=== PATIENT | female | born 1965 ===

== ENCOUNTER → 2022-10-22 10:06 | Outpatient (CLI) | payer OTHER, SELFPAY ==
--- NOTE | ~2022-10-22 | MR_ITS ---
EXAMINATION: MR elbow RT wo con DATE: 10/22/2022 10:51 INDICATION: A couple months of right elbow pain TECHNIQUE: Magnetic resonance imaging (MRI) of the right elbow was performed without intravenous cont rast. Sequences included coronal, axial, and sagittal PD-weighted FS FSE and coronal, axial, and sagi ttal PD-weighted FSE. COMPARISON: None FINDINGS: Osseous/other: Normal alignment. Normal marrow signal with no marrow edema, fracture, osteochondral lesion or abnor mal marrow replacing process. Tendons: Triceps, biceps brachii and brachialis tendons are normal. Common flexor tendon wad is normal. Mild tendinopathy without discrete tear at the lateral epicondylar origin of the common extensor tendon wa d. Ligaments: The medial and lateral collateral ligament complexes are normal. Cubital tunnel: Cubital tunnel is unremarkable with normal signal and caliber of the ulnar nerve. Fluid: Physiologic amount of fluid the elbow joint. IMPRESSION: 1. Mild tendinopathy without discrete tear at the lateral epicondylar origin of the common extensor t endon wad. Reviewed, dictated and finalized at location A. DRESSER IMPRESSION: 1. Mild tendinopathy without discrete tear at the lateral epicondylar origin of the common extensor tendon wad.
== END ==
PROVIDERS: PCP Family Medicine; Visit Provider Nurse Practitioner
DX: M79.601 Pain in right arm (principal)
CPT/HCPCS: 73221

== ENCOUNTER 2025-03-19 15:45 | Outpatient (RCR) | payer OTHER, SELFPAY ==
--- NOTE | 2025-03-19 16:45 | OPREHPOC ---
Outpatient Therapy Plan of Care This is a Multidisciplinary Plan of Care that may contain components documented by all disciplines (PT, OT, and ST.) PT Problem 1 PT Problem #1 Knowledge Deficit PT Goal 1 Goal / Goal Update Independent and compliant with HEP. Target Visit 2 PT Problem 2 PT Problem #2 Pain PT Goal 1 Goal / Goal Update Pt to report no worse than 2/10 pain at rest. Pt to report no worse than 6/10 pain with activity . Target Visit 10 PT Problem 3 PT Problem #3 Impaired Strength PT Goal 1 Goal / Goal Update Pt to improve R hip and knee strength to 4+/5 for improved dynamic stability for functional tasks. Target Visit 10 PT Problem 4 PT Problem #4 Impaired Range of Motion PT Goal 1 Goal / Goal Update Pt to improve R knee flexion AROM to 120 deg. Target Visit 10 PT Problem 5 PT Problem #5 Impaired Functional Mobility PT Goal 1 Goal / Goal Update Pt to report 20% reduction in perceived disability on LEFS. Pt to report being able to get in/out of the car with no worse than 4/10 pain. Target Visit 10
--- NOTE | 2025-03-19 16:46 | PTOPEVAL1 ---
Assessment and note entered by Camryn Warren, PT Evaluation Information Assessment Status Evaluation ICD-10 Condition Codes (PT) Pain in right knee M25.561 Other ICD-10 Condition Codes ( R60.0 PT) Onset 03/05/25 Subjective Information Pt reports onset of knee pain two weeks ago and notes no mechanism of injury. Her pain is currently 4/10 at rest and increases with standing and bending the knee such as when getting into the car and steeping over the bathtub to get into the shower. She has had to use her walk-in shower due to inability to step over the tub to shower and notes frequently waking up at night when she moves her leg in bed. She also noticed the knee swelled up. She reports her pain is in the back of the knee and inside, and sometimes she feels pain in the calf. Also notes her knee occasionally catches and feels like it locks up. She reports she does a lot of outdoor work and was very active when she was younger, involved in running, volleyball, swimming, horseback riding. X-ray on 03/16/25 was negative. Reported Pain Level Pain Score 4: Self Report Assessment PT Clinical Summary Mrs. Ernandez is a 59 yo female presenting to skilled PT evaluation for R knee pain. She presents with posteromedial knee pain that worsens with standing , walking, and excessive knee flexion such as when getting into the car and stepping over her bathtub. She demonstrates pain upon palpation to the posteriomedial knee at the joint line and reproduction of medial knee pain with Keysha's and Apley's compression tests, along with history of catching/locking indicating possible meniscal involvement. Skilled PT intervention is indicated to improve R hip and knee strength and ROM and to reduce pain to improve tolerance for functional activities. Pt would also benefit from MRI for further evaluation and/or confirmation of meniscal pathology. Plan of Care Interventions Electrical Stimulation,Gait Training,Hot Pack/Cold Pack,Intermittent Compression Pump,Manual Therapy ,Neuro Re-education,Patient/Caregiver Education, Therapeutic Activities,Therapeutic Exercise,Self- Care/Home Management PT Services Indicated Yes Treatment Frequency and 2x/week for 10 visits Duration These treatments will address the objective and functional deficits as defined above. The patient will be advanced safely and appropriately in order for the patient to progress towards his/her prior level of function. Additional exercises will be introduced and as well as a comprehensive home exercise program upon discharge, if needed, ?to ensure carryover of functional gains achieved in the clinic. This treatment plan has been reviewed and agreement upon by the patient.
--- NOTE | 2025-05-06 16:52 | PCPTNOTE ---
Mrs. Ernandez attended 4 skilled PT visits addressing R knee pain. She has not attended therapy since 04/07/2025, and upon calling the patient today she stated her knee is feeling improved and she would like to be discharged from therapy. Camryn Warren, CAMT
== END 2025-04-07 20:00 | disposition home or self-care (01) ==
LOC: CHSPT 15:45
DX: M25.561 Pain in right knee (principal); R60.0 Localized edema
CPT/HCPCS: 97014; 97110; 97112; 97140; 97161; 97530; G0283